=== PATIENT | male | born 1975 | race Caucasian/White ===

== ENCOUNTER 2018-10-11 21:08 | Emergency (ER) | payer SELFPAY ==
[~2018-10-11] VITALS: Ht 182.9 cm; Wt 131.5 kg
--- NOTE | 2018-10-11 21:22 | ED General ---
General Stated Complaint: SHAKING, BLOOD PRESSURE AND DIBETES CONCERNS Source of Information: Patient Exam Limitations: No Limitations History of Present Illness Date Seen by Provider: October 11, 2018 Time Seen by Provider: 21:19 Initial Comments To ER with reports of general weakness. This began about 6 PM this evening fairly suddenly. He denies any chest pain shortness of breath, specific aches or pains, no fevers chills nausea vomiting diarrhea or dysuria. He states "I feel like I'm on dope". He denies any drug use history but states that this is what he imagined "don't as "feels like, Referring to general weakness. 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 Reports a history of high blood pressure and diabetes which he takes pills, no other medical history that is known to him. Timing/Duration: 1-2 Days Severity: Moderate Associated Systoms: Weakness Allergies and Home Medications Allergies Uncoded Allergies: "PAIN PILL" (Adverse Reaction, Unknown, 10/11/18) Home Medications Unable to Obtain Active Prescriptions or Reported Meds Patient Home Medication List Home Medication List Reviewed: Yes Review of Systems Review of Systems Constitutional: see HPI; No chills, No fever; weakness EENTM: see HPI Respiratory: no symptoms reported Cardiovascular: no symptoms reported, see HPI; No chest pain, No edema, No Hx of Intervention Genitourinary: no symptoms reported Musculoskeletal: see HPI Skin: no symptoms reported Psychiatric/Neurological: No Symptoms Reported Hematologic/Lymphatic: No Symptoms Reported Immunological/Allergic: no symptoms reported Past Zshizxm-Mwkrwe-Dojehl Hx Patient Social History Recent Foreign Travel: No Contact w/Someone Who Travel: No Physical Exam Vital Signs Vital Signs - First Documented 10/11/18 21:14 Temp 97.7 Pulse 69 Resp 18 B/P (MAP) 156/103 (120) Pulse Ox 96 O2 Delivery Room Air Capillary Refill : Height, Weight, BMI Height: '" Weight: lbs. oz. kg; BMI Method: General Appearance: No Apparent Distress, WD/WN Eyes: Bilateral Eye Normal Inspection, Bilateral Eye PERRL, Bilateral Eye EOMI HEENT: PERRL/EOMI, TMs Normal Neck: Full Range of Motion, Normal Inspection Respiratory: No Accessory Muscle Use, No Respiratory Distress Cardiovascular: Regular Rate, Rhythm, Normal Peripheral Pulses Gastrointestinal: Non Tender, Soft Extremity: Normal Capillary Refill, Normal Inspection Neurologic/Psychiatric: Alert, Oriented x3 Skin: Normal Color, Warm/Dry Progress/Results/Core Measures Suspected Sepsis SIRS Temperature: Pulse: Respiratory Rate: Laboratory Tests 10/11/18 21:18: White Blood Count 9.0 Blood Pressure / Mean: Laboratory Tests 10/11/18 21:18: Creatinine 0.86, Platelet Count 241, Total Bilirubin 0.7 Results/Orders Lab Results Laboratory Tests Test 10/11/18 21:18 10/11/18 21:20 Range/Units White Blood Count 9.0 4.3-11.0 10^3/uL Red Blood Count 4.60 4.35-5.85 10^6/uL Hemoglobin 14.1 13.3-17.7 G/DL Hematocrit 39 L 40-54 % Mean Corpuscular Volume 84 80-99 FL Mean Corpuscular Hemoglobin 31 25-34 PG Mean Corpuscular Hemoglobin Concent 36 32-36 G/DL Red Cell Distribution Width 12.4 10.0-14.5 % Platelet Count 241 130-400 10^3/uL Mean Platelet Volume 11.8 H 7.4-10.4 FL Neutrophils (%) (Auto) 54 42-75 % Lymphocytes (%) (Auto) 33 12-44 % Monocytes (%) (Auto) 10 0-12 % Eosinophils (%) (Auto) 2 0-10 % Basophils (%) (Auto) 1 0-10 % Neutrophils # (Auto) 4.9 1.8-7.8 X 10^3 Lymphocytes # (Auto) 3.0 1.0-4.0 X 10^3 Monocytes # (Auto) 0.9 0.0-1.0 X 10^3 Eosinophils # (Auto) 0.2 0.0-0.3 10^3/uL Basophils # (Auto) 0.1 0.0-0.1 10^3/uL Sodium Level 137 135-145 MMOL/L Potassium Level 3.5 L 3.6-5.0 MMOL/L Chloride Level 104 98-107 MMOL/L Carbon Dioxide Level 19 L 21-32 MMOL/L Anion Gap 14 5-14 MMOL/L Blood Urea Nitrogen 8 7-18 MG/DL Creatinine 0.86 0.60-1.30 MG/DL Estimat Glomerular Filtration Rate > 60 BUN/Creatinine Ratio 9 Glucose Level 101 70-105 MG/DL Calcium Level 9.4 8.5-10.1 MG/DL Corrected Calcium 9.2 8.5-10.1 MG/DL Total Bilirubin 0.7 0.1-1.0 MG/DL Aspartate Amino Transf (AST/SGOT) 23 5-34 U/L Alanine Aminotransferase (ALT/SGPT) 34 0-55 U/L Alkaline Phosphatase 88 40-136 U/L Troponin I < 0.028 <0.028 NG/ML Total Protein 7.5 6.4-8.2 GM/DL Albumin 4.3 3.2-4.5 GM/DL Thyroid Stimulating Hormone (TSH) 1.55 0.35-4.94 UIU/ML Serum Alcohol < 10 <10 MG/DL Urine Color YELLOW Urine Clarity CLEAR Urine pH 6 5-9 Urine Specific Haynes 1.005 L 1.016-1.022 Urine Protein NEGATIVE NEGATIVE Urine Glucose (UA) NEGATIVE NEGATIVE Urine Ketones NEGATIVE NEGATIVE Urine Nitrite NEGATIVE NEGATIVE Urine Bilirubin NEGATIVE NEGATIVE Urine Urobilinogen 1 NORMAL MG/DL Urine Leukocyte Esterase NEGATIVE NEGATIVE Urine RBC (Auto) 2+ H NEGATIVE Urine RBC 0-2 /HPF Urine WBC 0-2 /HPF Urine Crystals NONE /LPF Urine Bacteria NEGATIVE /HPF Urine Casts NONE /LPF Urine Mucus NEGATIVE /LPF Urine Culture Indicated NO Glucometer 99 70-110 MG/DL My Orders Orders - LORIN GRANADOS APRN Cbc With Automated Diff (10/11/18 21:17) Comprehensive Metabolic Panel (10/11/18 21:17) Thyroid Stimulating Hormone (10/11/18 21:17) Alcohol (10/11/18 21:17) Ed Iv/Invasive Line Start (10/11/18 21:17) Ekg Tracing (10/11/18 21:17) Accucheck Stat ONCE (10/11/18 21:17) Troponin I (10/11/18 21:25) Ua Culture If Indicated (10/11/18 21:25) Lactated Ringers (Lr 1000 Ml Iv Solution (10/11/18 21:30) Vital Signs/I&O 10/11/18 21:14 Temp 97.7 Pulse 69 Resp 18 B/P (MAP) 156/103 (120) Pulse Ox 96 O2 Delivery Room Air Capillary Refill : Departure Impression Primary Impression: General symptom Disposition: 01 HOME, SELF-CARE Condition: Stable Departure-Patient Inst. Decision time for Depature: 22:11 Patient Instructions: General (DC) Add. Discharge Instructions: 1. Follow up with your doctor next week. 2.reutnr to Er for any concerns Scripts Unable to Obtain Active Prescriptions or Reported Meds LORIN GRANADOS APRN October 11, 2018 21:22
[2018-10-11 21:27] LABS: BASOPHILS # (AUTO) 0.1 10^3/uL (0.0-0.1); BASOPHILS % (AUTO) 1 % (0-10); EOSINOPHILS # (AUTO) 0.2 10^3/uL (0.0-0.3); EOSINOPHILS % (AUTO) 2 % (0-10); HEMATOCRIT 39 % (40-54); HEMOGLOBIN 14.1 G/DL (13.3-17.7); LYMPHOCYTES % (AUTO) 33 % (12-44); MEAN CORPUSCULAR HEMOGLOBIN 31 PG (25-34); MEAN CORPUSCULAR HGB CONC 36 G/DL (32-36); MEAN CORPUSCULAR VOLUME 84 FL (80-99); MEAN PLATELET VOLUME 11.8 FL (7.4-10.4); MONOCYTES # (AUTO) 0.9 X 10^3 (0.0-1.0); MONOCYTES % (AUTO) 10 % (0-12); NEUTROPHILS # (AUTO) 4.9 X 10^3 (1.8-7.8); NEUTROPHILS % (AUTO) 54 % (42-75); PLATELET COUNT 241 10^3/uL (130-400); RED CELL DISTRIBUTION WIDTH 12.4 % (10.0-14.5)
[2018-10-11 21:30] LABS: BILIRUBIN,URINE NEGATIVE (NEGATIVE); CLARITY,URINE CLEAR; COLOR,URINE YELLOW; GLUCOSE, URINE (UA) NEGATIVE (NEGATIVE); KETONES,URINE NEGATIVE (NEGATIVE); LEUKOCYTE ESTERASE ,URINE NEGATIVE (NEGATIVE); NITRITE,URINE NEGATIVE (NEGATIVE); PH,URINE 6 (5-9); PROTEIN,URINE NEGATIVE (NEGATIVE); UROBILINOGEN,URINE 1 MG/DL (NORMAL)
[2018-10-11] MEDS ORDERED: LACTATED RINGERS 1,000 ML IV SCH (21:30)
[2018-10-11 21:37] LABS: BACTERIA,URINE NEGATIVE /HPF; RBC,URINE 0-2 /HPF; WBC,URINE 0-2 /HPF
[2018-10-11 21:45] LABS: ALANINE AMINOTRANSFERASE 34 U/L (0-55); ALBUMIN 4.3 GM/DL (3.2-4.5); ALKALINE PHOSPHATASE 88 U/L (40-136); BILIRUBIN,TOTAL 0.7 MG/DL (0.1-1.0); BUN/CREATININE RATIO 9; CALCIUM 9.4 MG/DL (8.5-10.1); CARBON DIOXIDE 19 MMOL/L (21-32); CHLORIDE 104 MMOL/L (98-107); CREATININE SERUM 0.86 MG/DL (0.60-1.30); GFR ESTIMATED > 60; GLUCOSE 101 MG/DL (70-105); POTASSIUM 3.5 MMOL/L (3.6-5.0); SODIUM 137 MMOL/L (135-145); TOTAL PROTEIN 7.5 GM/DL (6.4-8.2)
[2018-10-11 22:28] VITALS: BP 149/101
== END 2018-10-11 22:27 | disposition home or self-care (01) ==
LOC: ER 21:11
DX: R53.1 Weakness (principal); E11.9 Type 2 diabetes mellitus without complications; Z88.8 Allergy status to other drugs, medicaments and biological substances
CPT/HCPCS: 36415; 80053; 80320; 81000; 82962; 84443; 84484; 85025

== ENCOUNTER 2018-10-27 02:19 | Emergency (ER) | payer SELFPAY ==
[~2018-10-27] VITALS: Ht 182.9 cm; Wt 135.2 kg
--- OUTSIDE RECORDS SUMMARY | 2018-10-27 02:25 | XMS REPORT | Continuity of Care Document ---
Author Organization Unknown Address Unknown Allergies Active Description Code Type Severity Reaction Onset Reported/Identified Relationship to Patient Clinical Status Yes "PAIN PILL" "PAIN PILL" Unknown N/A 10/11/2018 Medications There is no data. Problems Date Dx Coded Attending Type Code Diagnosis Diagnosed By 10/11/2018 LORIN GRANADOS APRN Ot E11.9 TYPE 2 DIABETES MELLITUS WITHOUT COMPLIC 10/11/2018 LORIN GRANADOS APRN Ot R53.1 WEAKNESS 10/11/2018 LORIN GRANADOS APRN Ot Z88.8 ALLERGY STATUS TO OTH DRUG/MEDS/BIOL SUB 10/13/2018 LORIN GRANADOS APRN Ot E11.9 TYPE 2 DIABETES MELLITUS WITHOUT COMPLIC 10/13/2018 LORIN GRANADOS APRN Ot R53.1 WEAKNESS 10/13/2018 LORIN GRANADOS APRN Ot Z88.8 ALLERGY STATUS TO OTH DRUG/MEDS/BIOL SUB Procedures There is no data. Results Test Result Range Complete blood count (CBC) with automated white blood cell (WBC) differential - 10/11/18 21:18 Blood leukocytes automated count (number/volume) 9.0 10*3/uL 4.3-11.0 Blood erythrocytes automated count (number/volume) 4.60 10*6/uL 4.35-5.85 Venous blood hemoglobin measurement (mass/volume) 14.1 g/dL 13.3-17.7 Blood hematocrit (volume fraction) 39 % 40-54 Automated erythrocyte mean corpuscular volume 84 [foz_us] 80-99 Automated erythrocyte mean corpuscular hemoglobin (mass per erythrocyte) 31 pg 25-34 Automated erythrocyte mean corpuscular hemoglobin concentration measurement (mass/volume) 36 g/dL 32-36 Automated erythrocyte distribution width ratio 12.4 % 10.0- 14.5 Automated blood platelet count (count/volume) 241 10*3/uL 130-400 Automated blood platelet mean volume measurement 11.8 [foz_us] 7.4-10.4 Automated blood neutrophils/100 leukocytes 54 % 42-75 Automated blood lymphocytes/100 leukocytes 33 % 12-44 Blood monocytes/100 leukocytes 10 % 0-12 Automated blood eosinophils/100 leukocytes 2 % 0-10 Automated blood basophils/100 leukocytes 1 % 0-10 Blood neutrophils automated count (number/volume) 4.9 10*3 1.8-7.8 Blood lymphocytes automated count (number/volume) 3.0 10*3 1.0-4.0 Blood monocytes automated count (number/volume) 0.9 10*3 0.0- 1.0 Automated eosinophil count 0.2 10*3/uL 0.0-0.3 Automated blood basophil count (count/volume) 0.1 10*3/uL 0.0-0.1 Comprehensive metabolic panel - 10/11/18 21:18 Serum or plasma sodium measurement (moles/volume) 137 mmol/L 135-145 Serum or plasma potassium measurement (moles/volume) 3.5 mmol/L 3.6-5.0 Serum or plasma chloride measurement (moles/volume) 104 mmol/L 98-107 Carbon dioxide 19 mmol/L 21-32 Serum or plasma anion gap determination (moles/volume) 14 mmol/L 5-14 Serum or plasma urea nitrogen measurement (mass/volume) 8 mg/dL 7-18 Serum or plasma creatinine measurement (mass/volume) 0.86 mg/dL 0.60-1.30 Serum or plasma urea nitrogen/creatinine mass ratio 9 NRG Serum or plasma creatinine measurement with calculation of estimated glomerular filtration rate > NRG Serum or plasma glucose measurement (mass/volume) 101 mg/dL 70-105 Serum or plasma calcium measurement (mass/volume) 9.4 mg/dL 8.5-10.1 Serum or plasma total bilirubin measurement (mass/volume) 0.7 mg/dL 0.1-1.0 Serum or plasma alkaline phosphatase measurement (enzymatic activity/volume) 88 U/L 40-136 Serum or plasma aspartate aminotransferase measurement (enzymatic activity/volume) 23 U/L 5-34 Serum or plasma alanine aminotransferase measurement (enzymatic activity/volume) 34 U/L 0-55 Serum or plasma protein measurement (mass/volume) 7.5 g/dL 6.4-8.2 Serum or plasma albumin measurement (mass/volume) 4.3 g/dL 3.2-4.5 CALCIUM CORRECTED 9.2 mg/dL 8.5-10.1 THYROID STIMULATING HORMONE - 10/11/18 21:18 THYROID STIMULATING HORMONE 1.55 u[iU]/mL 0.35-4.94 Serum or plasma troponin i.cardiac measurement (mass/volume) - 10/11/18 21:18 Serum or plasma troponin i.cardiac measurement (mass/volume) < ng/mL <0.028 Serum or plasma ethanol measurement (mass/volume) - 10/11/18 21:18 Serum or plasma ethanol measurement (mass/volume) < mg/dL <10 Capillary blood glucose measurement by glucometer (mass/volume) - 10/11/18 21:20 Capillary blood glucose measurement by glucometer (mass/volume) 99 mg/dL 70-110 Complete urinalysis with reflex to culture - 10/11/18 21:20 Urine color determination YELLOW NRG Urine clarity determination CLEAR NRG Urine pH measurement by test strip 6 5-9 Specific gravity of urine by test strip 1.005 1.016-1.022 Urine protein assay by test strip, semi-quantitative NEGATIVE NEGATIVE Urine glucose detection by automated test strip NEGATIVE NEGATIVE Erythrocytes detection in urine sediment by light microscopy 2+ NEGATIVE Urine ketones detection by automated test strip NEGATIVE NEGATIVE Urine nitrite detection by test strip NEGATIVE NEGATIVE Urine total bilirubin detection by test strip NEGATIVE NEGATIVE Urine urobilinogen measurement by automated test strip (mass/volume) 1 mg/dL NORMAL Urine leukocyte esterase detection by dipstick NEGATIVE NEGATIVE Automated urine sediment erythrocyte count by microscopy (number/high power field) [HPF] NRG Automated urine sediment leukocyte count by microscopy (number/high power field) [HPF] NRG Bacteria detection in urine sediment by light microscopy NEGATIVE NRG Crystals detection in urine sediment by light microscopy NONE NRG Casts detection in urine sediment by light microscopy NONE NRG Mucus detection in urine sediment by light microscopy NEGATIVE NRG Complete urinalysis with reflex to culture NO NRG Encounters ACCT No. Visit Date/Time Discharge Status Pt. Type Provider Facility Loc./Unit Complaint [id number] 10/11/2018 21:11:00 10/11/2018 22:27:00 DIS Emergency LORIN GRANADOS APRN [facility] SHAKING, BLOOD PRESSURE AND DIBETES CONCERNS [id number] 10/27/2018 02:21:00 ACT Emergency ALMA CAPONE MD [facility] ER BLOOD PRESSURE CONCERNS
[2018-10-27] MEDS ORDERED: ASPIRIN 81 MG CHEW (CHILDREN'S ASA) PO ONE (02:45)
[2018-10-27 02:48] LABS: BASOPHILS # (AUTO) 0.1 10^3/uL (0.0-0.1); BASOPHILS % (AUTO) 0 % (0-10); EOSINOPHILS # (AUTO) 0.3 10^3/uL (0.0-0.3); EOSINOPHILS % (AUTO) 2 % (0-10); HEMATOCRIT 40 % (40-54); HEMOGLOBIN 14.1 G/DL (13.3-17.7); LYMPHOCYTES # (AUTO) 3.1 X 10^3 (1.0-4.0); LYMPHOCYTES % (AUTO) 28 % (12-44); MEAN CORPUSCULAR HEMOGLOBIN 30 PG (25-34); MEAN CORPUSCULAR HGB CONC 35 G/DL (32-36); MEAN CORPUSCULAR VOLUME 86 FL (80-99); MEAN PLATELET VOLUME 11.7 FL (7.4-10.4); MONOCYTES % (AUTO) 9 % (0-12); NEUTROPHILS # (AUTO) 6.8 X 10^3 (1.8-7.8); NEUTROPHILS % (AUTO) 61 % (42-75); PLATELET COUNT 250 10^3/uL (130-400); RED CELL DISTRIBUTION WIDTH 12.7 % (10.0-14.5); WHITE BLOOD COUNT 11.2 10^3/uL (4.3-11.0)
[2018-10-27 02:54] LABS: PROTHROMBIN TIME PATIENT 13.7 SEC (12.2-14.7)
[2018-10-27] MEDS ORDERED: amLODIPine 5 MG (NORVASC) TAB PO ONE (03:00)
[2018-10-27] MEDS ORDERED: lisINopril 10 MG (PRINIVIL) TABLET PO ONE (03:00)
[2018-10-27 03:02] LABS: ALANINE AMINOTRANSFERASE 35 U/L (0-55); ALBUMIN 4.1 GM/DL (3.2-4.5); ALKALINE PHOSPHATASE 69 U/L (40-136); BILIRUBIN,TOTAL 0.4 MG/DL (0.1-1.0); BUN/CREATININE RATIO 16; CALCIUM 9.3 MG/DL (8.5-10.1); CARBON DIOXIDE 20 MMOL/L (21-32); CHLORIDE 105 MMOL/L (98-107); CREATININE SERUM 0.96 MG/DL (0.60-1.30); GFR ESTIMATED > 60; GLUCOSE 153 MG/DL (70-105); MAGNESIUM 2.7 MG/DL (1.8-2.4); POTASSIUM 4.1 MMOL/L (3.6-5.0); SODIUM 135 MMOL/L (135-145)
--- NOTE | 2018-10-27 03:18 | ED Chest Pain ---
General Chief Complaint: Cardiac/General Problems Stated Complaint: BLOOD PRESSURE CONCERNS Nursing Triage Note: AMBULATORY TO ED STATING "I WANT MY BLOOD PRESSURE CHECKED" AND CHEST TIGHTNESS FOR 1-2H. PT PRESCRIBED BP MEDICATIONS BUT DOESN'T REMEMBER WHAT THEY ARE AND HASN'T TAKEN THEM FOR ALMOST A MONTH THEY ARE IN [place], [place] WHERE HE IS FROM BUT HE IS CURRENTLY FROM AND STAY[place]. Nursing Sepsis Screen: No Definite Risk Source: patient Exam Limitations: no limitations History of Present Illness Date Seen by Provider: Oct 27, 2018 Time Seen by Provider: 02:30 Initial Comments Here with report of his chest tightness. He is worried about his blood pressure. He is without his medicines. Apparently is from his who filled his medicines on 10/05/18. He does not have those medicines and she is in [facility]. He has not taken his blood pressure medicine or any of his medicines since then. He does not know what he is on but does appear to be chronically on lisinopril 40 mg daily, amlodipine 10 mg daily and olanzapine 10 mg daily. Denies nausea, vomiting, sweating or weakness. He is from his and believes he is going to be here for a while in [place]. He does not I have local doctor here. Timing/Duration: 1-3 hours Severity/Quality: mild Location: central Radiation: no radiation Activities at Onset: none Prior CP/Workup: no prior cardiac workup Modifying Factors: improves with rest ASA po ERP MANAGER: No NTG SL ERP MANAGER: No Associated Symptoms: No abdominal pain, No back pain, No diaphoresis, No dizziness, No edema, No fever/chills, No nausea/vomiting, No shortness of breath, No weakness Allergies and Home Medications Allergies Coded Allergies: clindamycin (Verified Allergy, Unknown, HICCUPS, 10/27/18) Uncoded Allergies: "PAIN PILL" (Adverse Reaction, Unknown, 10/11/18) Home Medications Unable to Obtain Active Prescriptions or Reported Meds Patient Home Medication List Home Medication List Reviewed: Yes Review of Systems Review of Systems Constitutional: see HPI; No chills, No fever EENTM: No Symptoms Reported Respiratory: No Symptoms Reported Cardiovascular: See HPI, Chest Pain; Denies Edema Gastrointestinal: Denies Diarrhea, Denies Nausea, Denies Vomiting Genitourinary: No Symptoms Reported Musculoskeletal: no symptoms reported Skin: no symptoms reported Psychiatric/Neurological: No Symptoms Reported All Other Systems Reviewed Negative Unless Noted: Yes Past Zacazqu-Kitbhq-Bflahc Hx Past Med/Social Hx: Reviewed Nursing Past Med/Soc Hx Patient Social History Alcohol Use: Denies Use Recreational Drug Use: No Type Used: Smokeless Tobacco 2nd Hand Smoke Exposure: Yes Recent Foreign Travel: No Contact w/Someone Who Travel: No Recent Infectious Disease Expo: No Recent Hopitalizations: No Immunizations Up To Date Tetanus Booster (TDap): Unknown Seasonal Allergies Seasonal Allergies: No Past Medical History Surgeries: Yes Orthopedic Respiratory: No Cardiac: Yes Hypertension Neurological: No Genitourinary: No Gastrointestinal: No Musculoskeletal: Yes Chronic Back Pain Endocrine: Yes Diabetes, Non-Insulin dep HEENT: No Cancer: No Psychosocial: No Integumentary: No Blood Disorders: No Family Medical History Reviewed Nursing Family Hx No Pertinent Family Hx Physical Exam Vital Signs Vital Signs - First Documented 10/27/18 02:29 Temp 98.0 Pulse 66 Resp 18 B/P (MAP) 168/96 (120) Capillary Refill : Less Than 3 Seconds Height, Weight, BMI Height: 6'0" Weight: 298lbs. oz. 135.823005zn; BMI Method:Stated General Appearance: No Apparent Distress, WD/WN, Obese HEENT: PERRL/EOMI, Pharynx Normal Neck: Non Tender, Supple Respiratory: Lungs Clear, Normal Breath Sounds Cardiovascular: Regular Rate, Rhythm, No Murmur Gastrointestinal: Non Tender, Soft Extremity: Normal Range of Motion, Non Tender Neurologic/Psychiatric: Alert, Oriented x3 Skin: Normal Color, Warm/Dry Progress/Results/Core Measures Results/Orders Lab Results Laboratory Tests Test 10/27/18 02:35 Range/Units White Blood Count 11.2 H 4.3-11.0 10^3/uL Red Blood Count 4.70 4.35-5.85 10^6/uL Hemoglobin 14.1 13.3-17.7 G/DL Hematocrit 40 40-54 % Mean Corpuscular Volume 86 80-99 FL Mean Corpuscular Hemoglobin 30 25-34 PG Mean Corpuscular Hemoglobin Concent 35 32-36 G/DL Red Cell Distribution Width 12.7 10.0-14.5 % Platelet Count 250 130-400 10^3/uL Mean Platelet Volume 11.7 H 7.4-10.4 FL Neutrophils (%) (Auto) 61 42-75 % Lymphocytes (%) (Auto) 28 12-44 % Monocytes (%) (Auto) 9 0-12 % Eosinophils (%) (Auto) 2 0-10 % Basophils (%) (Auto) 0 0-10 % Neutrophils # (Auto) 6.8 1.8-7.8 X 10^3 Lymphocytes # (Auto) 3.1 1.0-4.0 X 10^3 Monocytes # (Auto) 1.0 0.0-1.0 X 10^3 Eosinophils # (Auto) 0.3 0.0-0.3 10^3/uL Basophils # (Auto) 0.1 0.0-0.1 10^3/uL Prothrombin Time 13.7 12.2-14.7 SEC INR Comment 1.0 0.8-1.4 Activated Partial Thromboplast Time 32 24-35 SEC Sodium Level 135 135-145 MMOL/L Potassium Level 4.1 3.6-5.0 MMOL/L Chloride Level 105 98-107 MMOL/L Carbon Dioxide Level 20 L 21-32 MMOL/L Anion Gap 10 5-14 MMOL/L Blood Urea Nitrogen 15 7-18 MG/DL Creatinine 0.96 0.60-1.30 MG/DL Estimat Glomerular Filtration Rate > 60 BUN/Creatinine Ratio 16 Glucose Level 153 H 70-105 MG/DL Calcium Level 9.3 8.5-10.1 MG/DL Corrected Calcium 9.2 8.5-10.1 MG/DL Magnesium Level 2.7 H 1.8-2.4 MG/DL Total Bilirubin 0.4 0.1-1.0 MG/DL Aspartate Amino Transf (AST/SGOT) 22 5-34 U/L Alanine Aminotransferase (ALT/SGPT) 35 0-55 U/L Alkaline Phosphatase 69 40-136 U/L Myoglobin 23.2 10.0-92.0 NG/ML Troponin I < 0.028 <0.028 NG/ML Total Protein 7.0 6.4-8.2 GM/DL Albumin 4.1 3.2-4.5 GM/DL My Orders Orders - ALMA CAPONE MD Cbc With Automated Diff (10/27/18 02:37) Magnesium (10/27/18 02:37) Chest 1 View, Ap/Pa Only (10/27/18 02:37) Ekg Tracing (10/27/18 02:37) Cardiac Profile 1 (10/27/18 02:37) Comprehensive Metabolic Panel (10/27/18 02:37) Myoglobin Serum (10/27/18 02:37) Protime With Inr (10/27/18 02:37) Partial Thromboplastin Time (10/27/18 02:37) O2 (10/27/18 02:37) Monitor-Rhythm Ecg Trace Only (10/27/18 02:37) Lipid Panel (10/28/18 06:00) Ed Iv/Invasive Line Start (10/27/18 02:37) Aspirin Chewable Tablet (Baby Aspirin Ch (10/27/18 02:45) Lisinopril Tablet (Zestril Tablet) (10/27/18 03:00) Amlodipine Tablet (Norvasc Tablet) (10/27/18 03:00) Medications Given in ED Current Medications Medications Dose Ordered Sig/Aminah Route Start Time Stop Time Status Last Admin Dose Admin Amlodipine Besylate 10 mg ONCE ONCE PO 10/27/18 03:00 10/27/18 03:01 DC 10/27/18 03:08 5 MG Aspirin 324 mg ONCE ONCE PO 10/27/18 02:45 10/27/18 02:46 DC 10/27/18 02:42 324 MG Lisinopril 40 mg ONCE ONCE PO 10/27/18 03:00 10/27/18 03:01 DC 10/27/18 03:08 20 MG Vital Signs/I&O 10/27/18 02:29 Temp 98.0 Pulse 66 Resp 18 B/P (MAP) 168/96 (120) Blood Pressure Mean: 120 Progress Progress Note : Progress Note Seen and evaluated. IV, labs, EKG and chest x-ray ordered. ASA 324 mg by mouth ordered. External med history shows him on lisinopril 40 mg daily, olanzapine 10 mg daily, amlodipine 10 mg daily and Januvia 100 mg daily. We have ordered lisinopril 40 mg and amlodipine 10 mg that decreased to 20 and 5 mg respectively he has blood pressure was 140s over 90s systolic. Monitor patient. Initial ECG Impression Date: Oct 27, 2018 Initial ECG Impression Time: 02:33 Initial ECG Rate: 67 Initial ECG Rhythm: Normal Sinus Initial ECG Comparisson: Unchanged Comment Sinus rhythm with left axis deviation. No evidence of ST elevation NE. Similar to previous of 10/11/18. Interpreted by me. Diagnostic Imaging Diagonstic Imaging: Xray Plain Films/CT/US/NM/MRI: chest Comments No acute findings. Question pulmonary nodules left perihilar region. Departure Impression Primary Impression: Chest pain Qualified Codes: R07.9 - Chest pain, unspecified Additional Impressions: Uncontrolled hypertension Medication refill Disposition: HOME, SELF-CARE Condition: Improved Departure-Patient Inst. Decision time for Depature: 04:15 Referrals: KATIE LEDEZMA MD (PCP) Primary Care Physician Patient Instructions: Chest Pain (DC), High Blood Pressure (DC), Pulmonary Nodule Add. Discharge Instructions: All discharge instructions reviewed with patient and/or family. Voiced understanding. You did get one month refill on some of your medicines. It is very important that you follow up with your doctor or establish primary care here if you're planning on staying in town so that your medications can be refilled and for a primary care doctor to direct your care. Return for worse pain, fever, vomiting, weakness, breathing problems or other concerns as needed. The chest x-ray shows what may be a small nodule in the middle of the left lung. This may just be shadowing but should be rechecked with your primary care doctor to ensure stability. Scripts Sitagliptin Phosphate (Januvia) 100 Mg Tablet 100 MG PO DAILY, #30 TAB 0 Refills Prov: ALMA CAPONE MD 10/27/18 Amlodipine Besylate (Amlodipine Besylate) 10 Mg Tablet 10 MG PO DAILY, #30 TAB 0 Refills Prov: ALMA CAPONE MD 10/27/18 Metformin HCl (Metformin HCl) 500 Mg Tablet 1000 MG PO BID, #120 TAB 0 Refills Prov: ALMA CAPONE MD 10/27/18 Fluoxetine HCl (Fluoxetine HCl) 40 Mg Capsule 40 MG PO DAILY, #30 CAP 0 Refills Prov: ALMA CAPONE MD 10/27/18 Olanzapine (Olanzapine) 5 Mg Tablet 5 MG PO DAILY, #30 TAB 0 Refills Prov: ALMA CAPONE MD 10/27/18 Lisinopril (Lisinopril) 40 Mg Tablet 40 MG PO DAILY, #30 TAB 0 Refills Prov: ALMA CAPONE MD 10/27/18 Work/School Note: Local Medical Staff Listing ALMA CAPONE MD Oct 27, 2018 03:18
[2018-10-27] MEDS ORDERED: AMLO10TA7 PO (04:15)
[2018-10-27] MEDS ORDERED: METF-397 PO (04:15)
[2018-10-27] MEDS ORDERED: LISI40TA PO (04:15)
[2018-10-27] MEDS ORDERED: OLAN5TAB25 PO (04:15)
[2018-10-27] MEDS ORDERED: FLUO40CA PO (04:15)
[2018-10-27] MEDS ORDERED: SITA100T12 PO (04:15)
[2018-10-27 04:20] VITALS: BP 144/105
--- NOTE | 2018-10-27 06:33 | Diagnostic Imaging Report ---
EXAMINATION: Portable erect AP chest at 2:51 AM INDICATION: Hypertension There are no prior studies available for comparison. The heart size is within normal limits. The lungs are clear. There is no evidence for failure, pneumonia or pleural effusion. There is a small 7 MM noncalcified nodular density in the left perihilar region. This finding is more likely due to a benign granuloma or vessel seen on end than to a neoplastic mass. If previous exams are available, they would be helpful for comparison. If there are no prior studies, however, then non-emergent followup PA and lateral chest would be recommended. The mediastinum is not widened. The osseous structures are intact. IMPRESSION: 1. There is no evidence for an acute cardiopulmonary abnormality. 2. The small nodular density in the left perihilar region is of uncertain etiology although most likely benign. Recommendations as above. Dictated by: Dictated on workstation # [id number]
== END 2018-10-27 04:26 | disposition home or self-care (01) ==
LOC: EDUNIT# 02:19 → ER 02:21
DX: R07.89 Other chest pain (principal); I10 Essential (primary) hypertension; E11.9 Type 2 diabetes mellitus without complications; Z88.1 Allergy status to other antibiotic agents; Z88.8 Allergy status to other drugs, medicaments and biological substances; Z77.22 Contact with and (suspected) exposure to environmental tobacco smoke (acute) (chronic)
CPT/HCPCS: 36415; 71045; 80053; 83735; 83874; 84484; 85025; 85610; 85730; 93005; 93041

== ENCOUNTER 2018-12-07 20:26 | Emergency (ER) | payer BC ==
[~2018-12-07] VITALS: Ht 182.9 cm; Wt 128.8 kg
[~2018-12-07 20:26] MED LIST: AMLO10TA7 PO; FLUO40CA PO; LISI40TA PO; METF-397 PO; OLAN5TAB25 PO; SITA100T12 PO
--- OUTSIDE RECORDS SUMMARY | 2018-12-07 20:31 | XMS REPORT | Continuity of Care Document ---
Author Organization Unknown Address Unknown Allergies Active Description Code Type Severity Reaction Onset Reported/Identified Relationship to Patient Clinical Status Yes "PAIN PILL" "PAIN PILL" Unknown N/A 10/11/2018 Yes clindamycin [id number] Drug Allergy Unknown HICCUPS 10/27/2018 Medications There is no data. Problems Date [...] Z88.8 ALLERGY STATUS TO OTH DRUG/MEDS/BIOL SUB 10/30/2018 ALMA CAPONE MD Ot E11.9 TYPE 2 DIABETES MELLITUS WITHOUT COMPLIC 10/30/2018 ALMA CAPONE MD Ot I10 ESSENTIAL (PRIMARY) HYPERTENSION 10/30/2018 ALMA CAPONE MD Ot R07.89 OTHER CHEST PAIN 10/30/2018 ALMA CAPONE MD Ot Z77.22 CNTCT W AND EXPSR TO ENVIRON TOBACCO SMO 10/30/2018 ALMA CAPONE MD Ot Z88.1 ALLERGY STATUS TO OTHER ANTIBIOTIC AGENT 10/30/2018 ALMA CAPONE MD, Ot Z88.8 ALLERGY STATUS TO OTH DRUG/MEDS/BIOL [...] count by microscopy (number/high power field) [HPF] NR Automated urine sediment leukocyte count by microscopy (number/high power field) [HPF] NRG Bacteria detection in urine sediment by light microscopy NEGATIVE NRG Crystals detection in urine sediment by light microscopy NONE NRG Casts detection in urine sediment by light microscopy NONE NRG Mucus detection in urine sediment by light microscopy NEGATIVE NRG Complete urinalysis with reflex to culture NO NRG Complete blood count (CBC) with automated white blood cell (WBC) differential - 10/27/18 02:35 Blood leukocytes automated count (number/volume) 11.2 10*3/uL 4.3-11.0 Blood erythrocytes automated count (number/volume) 4.70 10*6/uL 4.35-5.85 Venous blood hemoglobin measurement (mass/volume) 14.1 g/dL 13.3-17.7 Blood hematocrit (volume fraction) 40 % 40-54 Automated erythrocyte mean corpuscular volume 86 [foz_us] 80-99 Automated erythrocyte mean corpuscular hemoglobin (mass per erythrocyte) 30 pg 25-34 Automated erythrocyte mean corpuscular hemoglobin concentration measurement (mass/volume) 35 g/dL 32-36 Automated erythrocyte distribution width ratio 12.7 % 10.0- 14.5 Automated blood platelet count (count/volume) 250 10*3/uL 130-400 Automated blood platelet mean volume measurement 11.7 [foz_us] 7.4-10.4 Automated blood neutrophils/100 leukocytes 61 % 42-75 Automated blood lymphocytes/100 leukocytes 28 % 12-44 Blood monocytes/100 leukocytes 9 % 0-12 Automated blood eosinophils/100 leukocytes 2 % 0-10 Automated blood basophils/100 leukocytes 0 % 0-10 Blood neutrophils automated count (number/volume) 6.8 10*3 1.8-7.8 Blood lymphocytes automated count (number/volume) 3.1 10*3 1.0-4.0 Blood monocytes automated count (number/volume) 1.0 10*3 0.0- 1.0 Automated eosinophil count 0.3 10*3/uL 0.0-0.3 Automated blood basophil count (count/volume) 0.1 10*3/uL 0.0-0.1 Comprehensive metabolic panel - 10/27/18 02:35 Serum or plasma sodium measurement (moles/volume) 135 mmol/L 135-145 Serum or plasma potassium measurement (moles/volume) 4.1 mmol/L 3.6-5.0 Serum or plasma chloride measurement (moles/volume) 105 mmol/L 98-107 Carbon dioxide 20 mmol/L 21-32 Serum or plasma anion gap determination (moles/volume) 10 mmol/L 5-14 Serum or plasma urea nitrogen measurement (mass/volume) 15 mg/dL 7-18 Serum or plasma creatinine measurement (mass/volume) 0.96 mg/dL 0.60-1.30 Serum or plasma urea nitrogen/creatinine mass ratio 16 NRG Serum or plasma creatinine measurement with calculation of estimated glomerular filtration rate > NRG Serum or plasma glucose measurement (mass/volume) 153 mg/dL 70-105 Serum or plasma calcium measurement (mass/volume) 9.3 mg/dL 8.5-10.1 Serum or plasma total bilirubin measurement (mass/volume) 0.4 mg/dL 0.1-1.0 Serum or plasma alkaline phosphatase measurement (enzymatic activity/volume) 69 U/L 40-136 Serum or plasma aspartate aminotransferase measurement (enzymatic activity/volume) 22 U/L 5-34 Serum or plasma alanine aminotransferase measurement (enzymatic activity/volume) 35 U/L 0-55 Serum or plasma protein measurement (mass/volume) 7.0 g/dL 6.4-8.2 Serum or plasma albumin measurement (mass/volume) 4.1 g/dL 3.2-4.5 CALCIUM CORRECTED 9.2 mg/dL 8.5-10.1 Magnesium - 10/27/18 02:35 Magnesium 2.7 mg/dL 1.8-2.4 PT panel in platelet poor plasma by coagulation assay - 10/27/18 02:35 Prothrombin time (PT) in platelet poor plasma by coagulation assay 13.7 s 12.2-14.7 INR in platelet poor plasma or blood by coagulation assay 1.0 0.8-1.4 Activated partial thromboplastin time (aPTT) in platelet poor plasma bycoagulation assay - 10/27/18 02:35 Activated partial thromboplastin time (aPTT) in platelet poor plasma bycoagulation assay 32 s 24-35 Serum or plasma troponin i.cardiac measurement (mass/volume) - 10/27/18 02:35 Serum or plasma troponin i.cardiac measurement (mass/volume) < ng/mL <0.028 Myoglobin, serum - 10/27/18 02:35 Myoglobin, serum 23.2 ng/mL 10.0-92.0 Encounters ACCT No. Visit Date/Time Discharge Status Pt. Type Provider Facility Loc./Unit Complaint [id number] 10/27/2018 02:21:00 10/27/2018 04:26:00 DIS Outpatient ALMA CAPONE MD [facility] ER BLOOD PRESSURE CONCERNS [id number] 10/11/2018 21:11:00 10/11/2018 22:27:00 DIS Emergency LORIN GRANADOS APRN [facility] ER SHAKING, BLOOD PRESSURE AND DIBETES CONCERNS
[2018-12-07 21:01] LABS: BASOPHILS # (AUTO) 0.1 10^3/uL (0.0-0.1); BASOPHILS % (AUTO) 0 % (0-10); EOSINOPHILS # (AUTO) 0.2 10^3/uL (0.0-0.3); EOSINOPHILS % (AUTO) 2 % (0-10); HEMATOCRIT 41 % (40-54); HEMOGLOBIN 14.2 G/DL (13.3-17.7); LYMPHOCYTES % (AUTO) 26 % (12-44); MEAN CORPUSCULAR HEMOGLOBIN 30 PG (25-34); MEAN CORPUSCULAR HGB CONC 35 G/DL (32-36); MEAN CORPUSCULAR VOLUME 86 FL (80-99); MONOCYTES % (AUTO) 9 % (0-12); NEUTROPHILS # (AUTO) 7.3 X 10^3 (1.8-7.8); NEUTROPHILS % (AUTO) 63 % (42-75); PLATELET COUNT 236 10^3/uL (130-400); RED CELL DISTRIBUTION WIDTH 12.8 % (10.0-14.5); WHITE BLOOD COUNT 11.6 10^3/uL (4.3-11.0)
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
[2018-12-07 21:11] LABS: BILIRUBIN,URINE NEGATIVE (NEGATIVE); CLARITY,URINE CLEAR; COLOR,URINE YELLOW; GLUCOSE, URINE (UA) NEGATIVE (NEGATIVE); KETONES,URINE NEGATIVE (NEGATIVE); LEUKOCYTE ESTERASE ,URINE NEGATIVE (NEGATIVE); NITRITE,URINE NEGATIVE (NEGATIVE); PH,URINE 6.5 (5-9); PROTEIN,URINE NEGATIVE (NEGATIVE); UROBILINOGEN,URINE 1 MG/DL (NORMAL)
[2018-12-07 21:17] LABS: BACTERIA,URINE NEGATIVE /HPF; RBC,URINE RARE /HPF; SQUAMOUS EPITHELIAL CELL,UR RARE /HPF
[2018-12-07 21:25] LABS: ALANINE AMINOTRANSFERASE 26 U/L (0-55); ALBUMIN 4.3 GM/DL (3.2-4.5); ALKALINE PHOSPHATASE 82 U/L (40-136); BILIRUBIN,TOTAL 0.7 MG/DL (0.1-1.0); BUN/CREATININE RATIO 12; CALCIUM 9.6 MG/DL (8.5-10.1); CARBON DIOXIDE 21 MMOL/L (21-32); CHLORIDE 105 MMOL/L (98-107); CREATINE KINASE 108 U/L (30-200); CREATININE SERUM 0.94 MG/DL (0.60-1.30); GFR ESTIMATED > 60; GLUCOSE 121 MG/DL (70-105); MAGNESIUM 2.7 MG/DL (1.8-2.4); POTASSIUM 3.9 MMOL/L (3.6-5.0); SODIUM 136 MMOL/L (135-145); TOTAL PROTEIN 7.2 GM/DL (6.4-8.2)
[2018-12-07 21:27] LABS: AMPHETAMINE SCREEN, URINE NEGATIVE (NEGATIVE); BARBITURATE SCREEN URINE NEGATIVE (NEGATIVE); BENZODIAZEPINES SCREEN URINE NEGATIVE (NEGATIVE); CANNABINOID SCREEN, URINE NEGATIVE (NEGATIVE); COCAINE SCREEN URINE NEGATIVE (NEGATIVE); METHADONE STAT NEGATIVE (NEGATIVE); METHAMPHETAMINE SCREEN URINE S NEGATIVE (NEGATIVE); OPIATE SCREEN URINE NEGATIVE (NEGATIVE); OXYCODONE STAT NEGATIVE (NEGATIVE); PROPOXYPHENE STAT NEGATIVE (NEGATIVE); TRICYCLIC ANTIDEPRESSANTS SCRE NEGATIVE (NEGATIVE)
[2018-12-07 21:28] LABS: ACETAMINOPHEN < 10 UG/ML (10-30)
--- NOTE | 2018-12-07 21:29 | Diagnostic Imaging Report ---
INDICATION: Syncopal episode EXAMINATION: Chest dated 12/07/2018 Comparison made to 10/27/2018 FINDINGS: Density in the left perihilar region stable from previous. The heart and pulmonary vasculature are normal. Lungs and pleural spaces clear. No pneumothorax. IMPRESSION: 1. Stable chest. No acute process. Dictated by: Dictated on workstation # [id number]
[2018-12-07 21:32] LABS: CREATINE KINASE MB 1.8 NG/ML (<6.6)
--- NOTE | 2018-12-07 21:37 | Diagnostic Imaging Report ---
PROCEDURE: CT head wo r/o stroke. TECHNIQUE: Multiple contiguous axial images were obtained through the brain without the use of intravenous contrast. Auto Exposure Controls were utilized during the CT exam to meet ALARA standards for radiation dose reduction. INDICATION: Stroke EXAMINATION: CT head 12/07/2018 FINDINGS: There is no evidence for acute hemorrhage or infarct. No mass, mass effect or midline shift. No hydrocephalus. The calvarium is intact. The paranasal sinuses demonstrate marked diffuse opacification of the ethmoid air cells, age-indeterminate. Remaining sinuses clear. The visualized mastoid air cells unremarkable. IMPRESSION: 1. Chronic findings within the brain with no acute intracranial process seen. 2. Sinus disease as described. Dictated by: Dictated on workstation # [id number]
[2018-12-08 00:44] VITALS: BP 154/89
--- NOTE | 2018-12-08 09:11 | Diagnostic Imaging Report ---
PROCEDURE: CT angiography of the head and CT angiography of the neck with and without contrast. TECHNIQUE: Contiguous noncontrast images were obtained from the skull base through the vertex. After intravenous contrast administration, helical CT angiography of the neck was performed. Source data was reformatted into multiple MIP projections. Delayed post contrast acquisition was also obtained. Auto Exposure Controls were utilized during the CT exam to meet ALARA standards for radiation dose reduction. INDICATION: Syncope. Headache, blacked out. CORRELATION STUDY: None FINDINGS: Examination is compromised owing to contrast bolus timing and some soft tissue attenuation. There does appear to be a common origin of the brachiocephalic trunk, left common carotid artery, normal anatomic variation. Brachiocephalic trunk unremarkable. The bilateral common carotid arteries, internal and external carotid arteries are patent. There is rather markedly tortuous and redundant course of internal carotid arteries right greater than left. No significant stenosis or evidence for intraluminal abnormality. However, evaluation for subtle carotid section is markedly compromised on this study. The vertebral arteries are grossly patent but otherwise not well evaluated on this study. Helix of Miranda appears intact. The internal carotid arteries are patent. The middle and anterior cerebral arteries appearing unremarkable. The posterior circulation demonstrates basilar artery slightly small. The posterior communicating arteries are patent but the posterior cerebral arteries appearing unremarkable. Postcontrast imaging demonstrates no abnormal intracranial enhancement. Soft tissues of the neck appearing generally unremarkable. Lung apices clear. IMPRESSION: 1. Exam compromised by contrast bolus timing and soft tissue attenuation. Given limitations, no definitive evidence for significant large vessel occlusion. Intraluminal abnormality is markedly limited in assessment. A preliminary report was provided by [facility]. Dictated by: Dictated on workstation # [id number]
== END 2018-12-08 00:46 | disposition home or self-care (01) ==
LOC: EDUNIT# 20:26 → ER 20:27
DX: R55 Syncope and collapse (principal); E11.9 Type 2 diabetes mellitus without complications; I10 Essential (primary) hypertension; F31.9 Bipolar disorder, unspecified; F41.9 Anxiety disorder, unspecified; Z91.14 Patient's other noncompliance with medication regimen; Z88.1 Allergy status to other antibiotic agents; Z88.5 Allergy status to narcotic agent; Z79.84 Long term (current) use of oral hypoglycemic drugs; Z77.22 Contact with and (suspected) exposure to environmental tobacco smoke (acute) (chronic)
CPT/HCPCS: 36415; 70450; 70496; 70498; 71045; 80053; 80306; 80320; 80329; 81000; 82550; 82553; 82962; 83735; 83880; 84484; 85025; 85610; 85730; 93005; 93041